=== PATIENT | female | born 1955 | race Hispanic/Latino ===

== ENCOUNTER → 2018-03-12 | Outpatient (CLI) | payer MEDICAID ==
[2018-03-12 18:52] LABS: ALBUMIN 3.5 GM/DL (3.2-5.2); ALBUMIN/GLOBULIN RATIO 1.09 (1.00-1.93); ALKALINE PHOSPHATASE 275 U/L (45-117); ALT/SGPT 23 U/L (12-78); ANION GAP 11 MEQ/L (8-16); AST/SGOT 13 U/L (7-37); BILIRUBIN,TOTAL 0.4 MG/DL (0.2-1.0); BLOOD UREA NITROGEN 25 MG/DL (7-18); CALCIUM LEVEL 9.2 MG/DL (8.8-10.2); CARBON DIOXIDE LEVEL 26 MEQ/L (21-32); CHLORIDE LEVEL 93 MEQ/L (98-107); CREATININE FOR GFR 1.75 MG/DL (0.55-1.30); GLOMERULAR FILTRATION RATE 31.5 (>45); POTASSIUM SERUM 5.1 MEQ/L (3.5-5.1); SODIUM LEVEL 130 MEQ/L (136-145); TOTAL PROTEIN 6.7 GM/DL (6.4-8.2)
[2018-03-12 19:02] LABS: PTH INTACT 86.5 PG/ML (18.5-88.0); TOTAL 25(OH) VITAMIN D 82.3 NG/ML (30.0-100.0)
[2018-03-12 19:10] LABS: GLUCOSE, FASTING 749 MG/DL (70-100)
[2018-03-12 19:30] LABS: CREATININE, URINE 16.7 MG/DL; MALB URINE SIEMENS 20.5 MG/L; MAU/CREAT RATIO 122.7 MCG/MG (0.0-30.0)
[2018-03-12 20:10] LABS: BASO % 0.2 % (0.0-1.0); EOS # 0.1 10^3/uL (0.0-0.50); EOS % 1.2 % (0.0-3.0); HEMATOCRIT 36.4 % (36.0-47.0); HEMOGLOBIN 11.3 g/dl (12.0-15.5); IMMATURE GRANULOCYTE % 0.9 % (0-3.0); LYMPH # 1.3 10^3/uL (1.5-4.5); LYMPH % 21.7 % (24.0-44.0); MEAN CORPUSCULAR HEMOGLOBIN 26.9 pg (27.0-33.0); MEAN CORPUSCULAR VOLUME 86.7 fl (80.0-96.0); MONO # 0.4 10^3/uL (0.0-0.8); MONO % 6.5 % (0.0-5.0); NEUTROPHILS # 4.1 10^3/uL (1.8-7.7); NEUTROPHILS % 69.5 % (36.0-66.0); PLATELET COUNT, AUTOMATED 237 10^3/uL (150-450); RED CELL DISTRIBUTION WIDTH 13.4 % (11.5-14.5); WHITE BLOOD COUNT 5.9 10^3/uL (4.0-10.0)
[2018-03-12 20:53] LABS: APPEARANCE, URINE HAZY (CLEAR); BACTERIA, URINE AUTO 3+ (NEGATIVE); BILIRUBIN, URINE AUTO NEGATIVE (NEGATIVE); BLOOD, URINE BLOOD 1+ (NEGATIVE); COLOR, URINE STRAW (YELLOW); GLUCOSE, URINE (UA) AUTO 3+ mg/dL (NEGATIVE); KETONE, URINE AUTO NEGATIVE (NEGATIVE); LEUKOCYTE ESTERASE, URINE AUTO 3+ (NEGATIVE); MUCUS, URINE SMALL (NEGATIVE); NITRITE, URINE AUTO NEGATIVE (NEGATIVE); PROTEIN, URINE AUTO NEGATIVE (NEGATIVE); RBC, URINE AUTO 14 /HPF (0-3); SQUAMOUS EPITHELIAL CELL UR AU 0 /HPF (0-6); UROBILINOGEN, URINE AUTO 0.2 mg/dL (0.0-2.0); WBC, URINE AUTO TNTC /HPF (0-3)
[2018-03-15 15:51] LABS: FK 506 (TACROLIMUS) LABCORP 5.5 ng/mL (2.0-20.0)
== END ==
LOC: M SMT 11:57
DX: Z94.0 Kidney transplant status (principal); E55.9 Vitamin D deficiency, unspecified; N25.81 Secondary hyperparathyroidism of renal origin; E11.22 Type 2 diabetes mellitus with diabetic chronic kidney disease
CPT/HCPCS: 80053

== ENCOUNTER → 2018-03-16 | Outpatient (REF) | payer OTHER | LOC: M LAB REF 03-17 10:39 | DX: N39.0 Urinary tract infection, site not specified (principal) | CPT/HCPCS: 87186 ==

== ENCOUNTER → 2018-04-16 | Outpatient (CLI) | payer OTHER, MEDICAID | LOC: M PAIN 15:15 | DX: M54.2 Cervicalgia (principal); Z94.0 Kidney transplant status; E11.42 Type 2 diabetes mellitus with diabetic polyneuropathy; I10 Essential (primary) hypertension; Z79.4 Long term (current) use of insulin; Z79.899 Other long term (current) drug therapy | CPT/HCPCS: G0463 ==

== ENCOUNTER → 2018-05-11 | Outpatient (CLI) | payer OTHER, MEDICAID | LOC: M RAD 16:45 | DX: S62.635A Displaced fracture of distal phalanx of left ring finger, initial encounter for closed fracture (principal); M85.842 Other specified disorders of bone density and structure, left hand; X58.XXXA Exposure to other specified factors, initial encounter; Y92.9 Unspecified place or not applicable; M79.645 Pain in left finger(s) | CPT/HCPCS: 73130 ==

== ENCOUNTER → 2018-05-13 | Outpatient (CLI) | payer OTHER, MEDICAID | LOC: M PAIN 15:45 | DX: G89.29 Other chronic pain (principal); M54.2 Cervicalgia; M54.5 Low back pain; E11.9 Type 2 diabetes mellitus without complications; E78.5 Hyperlipidemia, unspecified; I10 Essential (primary) hypertension; Z98.1 Arthrodesis status; Z79.4 Long term (current) use of insulin; Z79.891 Long term (current) use of opiate analgesic; Z79.899 Other long term (current) drug therapy | CPT/HCPCS: G0463 ==

== ENCOUNTER → 2018-05-18 | Outpatient (CLI) | payer OTHER, MEDICAID ==
[2018-05-18 13:35] LABS: BASO % 0.2 % (0.0-1.0); EOS # 0.3 10^3/uL (0.0-0.50); EOS % 4.4 % (0.0-3.0); HEMATOCRIT 38.6 % (36.0-47.0); HEMOGLOBIN 12.5 g/dl (12.0-15.5); IMMATURE GRANULOCYTE % 0.2 % (0-3.0); LYMPH # 1.2 10^3/uL (1.5-4.5); LYMPH % 18.8 % (24.0-44.0); MEAN CORPUSCULAR HEMOGLOBIN 27.2 pg (27.0-33.0); MEAN CORPUSCULAR HGB CONC 32.4 g/dl (32.0-36.5); MEAN CORPUSCULAR VOLUME 83.9 fl (80.0-96.0); MONO # 0.4 10^3/uL (0.0-0.8); MONO % 6.2 % (0.0-5.0); NEUTROPHILS # 4.6 10^3/uL (1.8-7.7); NEUTROPHILS % 70.2 % (36.0-66.0); PLATELET COUNT, AUTOMATED 223 10^3/uL (150-450); RED CELL DISTRIBUTION WIDTH 12.9 % (11.5-14.5); WHITE BLOOD COUNT 6.6 10^3/uL (4.0-10.0)
[2018-05-18 14:30] LABS: ALBUMIN 3.6 GM/DL (3.2-5.2); ALBUMIN/GLOBULIN RATIO 1.06 (1.00-1.93); ALKALINE PHOSPHATASE 232 U/L (45-117); ALT/SGPT 28 U/L (12-78); ANION GAP 8 MEQ/L (8-16); AST/SGOT 20 U/L (7-37); BILIRUBIN,TOTAL 0.6 MG/DL (0.2-1.0); BLOOD UREA NITROGEN 20 MG/DL (7-18); CALCIUM LEVEL 9.3 MG/DL (8.8-10.2); CARBON DIOXIDE LEVEL 28 MEQ/L (21-32); CHLORIDE LEVEL 98 MEQ/L (98-107); CREATININE FOR GFR 1.41 MG/DL (0.55-1.30); GLOMERULAR FILTRATION RATE 40.4 (>45); GLUCOSE, FASTING 410 MG/DL (70-100); PTH INTACT 99.7 PG/ML (18.5-88.0); SODIUM LEVEL 134 MEQ/L (136-145)
[2018-05-19 12:48] LABS: TOTAL 25(OH) VITAMIN D 67.4 NG/ML (30.0-100.0)
[2018-05-21 08:06] LABS: FK 506 (TACROLIMUS) LABCORP 2.6 ng/mL (2.0-20.0)
== END ==
LOC: M SMT 10:44
DX: E11.22 Type 2 diabetes mellitus with diabetic chronic kidney disease (principal); E55.9 Vitamin D deficiency, unspecified; N25.81 Secondary hyperparathyroidism of renal origin; N39.0 Urinary tract infection, site not specified; Z94.0 Kidney transplant status
CPT/HCPCS: 80053

== ENCOUNTER → 2018-05-24 | Outpatient (CLI) | payer OTHER | LOC: M RAD 10:15 | DX: M43.22 Fusion of spine, cervical region (principal) | CPT/HCPCS: 72040 ==

== ENCOUNTER 2018-06-01 09:01 | Emergency (ER) | payer OTHER ==
[2018-06-01] MEDS: MORPHINE 4 MG/ML 1ML VIAL/SYRINGE (J2270) IV (11:16)
[2018-06-01 11:24] LABS: HEMATOCRIT 37.1 % (36.0-47.0); HEMOGLOBIN 12.2 g/dl (12.0-15.5); MEAN CORPUSCULAR HEMOGLOBIN 27.8 pg (27.0-33.0); MEAN CORPUSCULAR HGB CONC 32.9 g/dl (32.0-36.5); MEAN CORPUSCULAR VOLUME 84.5 fl (80.0-96.0); PLATELET COUNT, AUTOMATED 228 10^3/uL (150-450); RED BLOOD COUNT 4.39 10^6/uL (4.00-5.40); RED CELL DISTRIBUTION WIDTH 12.9 % (11.5-14.5); WHITE BLOOD COUNT 12.5 10^3/uL (4.0-10.0)
[2018-06-01 11:39] LABS: INR 0.98; PROTHROMBIN TIME 13.1 SECONDS (12.1-14.4)
[2018-06-01 11:49] LABS: ANION GAP 9 MEQ/L (8-16); BLOOD UREA NITROGEN 26 MG/DL (7-18); CALCIUM LEVEL 8.5 MG/DL (8.8-10.2); CARBON DIOXIDE LEVEL 27 MEQ/L (21-32); CHLORIDE LEVEL 97 MEQ/L (98-107); CREATININE FOR GFR 1.53 MG/DL (0.55-1.30); GLOMERULAR FILTRATION RATE 36.7 (>45); GLUCOSE, FASTING 299 MG/DL (70-100); POTASSIUM SERUM 4.6 MEQ/L (3.5-5.1); SODIUM LEVEL 133 MEQ/L (136-145)
[2018-06-01 11:54] LABS: CPK CREATINE PHOSPHOKINASE 115 U/L (26-192); MB/CK RELATIVE INDEX 1.04 (< OR =4); TROPONIN I < 0.02 NG/ML (< 0.10)
== END 2018-06-01 12:28 | disposition home or self-care (01) ==
LOC: M ED 09:01
DX: J93.9 Pneumothorax, unspecified (principal); S49.92XA Unspecified injury of left shoulder and upper arm, initial encounter; S22.42XA Multiple fractures of ribs, left side, initial encounter for closed fracture; W01.0XXA Fall on same level from slipping, tripping and stumbling without subsequent striking against object, initial encounter; Y92.018 Other place in single-family (private) house as the place of occurrence of the external cause; E11.65 Type 2 diabetes mellitus with hyperglycemia; I10 Essential (primary) hypertension; Z94.0 Kidney transplant status
CPT/HCPCS: J2270

== ENCOUNTER 2018-06-02 20:40 | Inpatient (IN) | payer OTHER ==
[2018-06-02] MEDS: CARVedilol 12.5 MG TAB PO (21:00)
[2018-06-02] MEDS: **NOTE PATIENT COMMENT** MISC XX (21:00)
[2018-06-02] MEDS: LEVEMIR (INSULIN DETEMIR) 1 UNITS/0.01ML SC (21:00)
[2018-06-02] MEDS: NS 1,000 ML IV (22:00)
[2018-06-02 22:35] LABS: BASO % 0.3 % (0.0-1.0); EOS % 0.1 % (0.0-3.0); HEMATOCRIT 37.9 % (36.0-47.0); HEMOGLOBIN 11.9 g/dl (12.0-15.5); IMMATURE GRANULOCYTE % 0.6 % (0-3.0); LYMPH # 1.7 10^3/uL (1.5-4.5); LYMPH % 12.3 % (24.0-44.0); MEAN CORPUSCULAR HEMOGLOBIN 27.4 pg (27.0-33.0); MEAN CORPUSCULAR HGB CONC 31.4 g/dl (32.0-36.5); MEAN CORPUSCULAR VOLUME 87.3 fl (80.0-96.0); MONO % 7.5 % (0.0-5.0); NEUTROPHILS # 10.9 10^3/uL (1.8-7.7); NEUTROPHILS % 79.2 % (36.0-66.0); PLATELET COUNT, AUTOMATED 225 10^3/uL (150-450); RED BLOOD COUNT 4.34 10^6/uL (4.00-5.40); RED CELL DISTRIBUTION WIDTH 13.1 % (11.5-14.5); VENOUS O2 SATURATION 76.7 % (60.0-80.0); VENOUS PARTIAL PRESSURE CO2 57.7 mmHg (38.0-50.0); VENOUS PARTIAL PRESSURE O2 43.5 mmHg (30.0-50.0); VENOUS PH 7.254 UNITS (7.330-7.430); VENOUS STANDARD HCO3 21.5 MEQ/L; VENOUS TOTAL CO2 26.7 MEQ/L (24.0-28.0); WHITE BLOOD COUNT 13.7 10^3/uL (4.0-10.0)
[2018-06-02 22:52] LABS: OSMOLALITY SERUM 299 MOSM/KG (280-301)
[2018-06-02 22:54] LABS: AMMONIA 18 uMOL/L (<32)
[2018-06-02 23:06] LABS: LACTIC ACID SEPSIS PROTOCOL 2.5 MMOL/L (0.4-2.0)
[2018-06-02 23:14] LABS: ALBUMIN 3.4 GM/DL (3.2-5.2); ALBUMIN/GLOBULIN RATIO 0.97 (1.00-1.93); ALKALINE PHOSPHATASE 220 U/L (45-117); ALT/SGPT 47 U/L (12-78); ANION GAP 9 MEQ/L (8-16); AST/SGOT 40 U/L (7-37); BILIRUBIN,DIRECT 0.2 MG/DL (0.0-0.2); BILIRUBIN,TOTAL 0.5 MG/DL (0.2-1.0); BLOOD UREA NITROGEN 37 MG/DL (7-18); CALCIUM LEVEL 8.4 MG/DL (8.8-10.2); CARBON DIOXIDE LEVEL 26 MEQ/L (21-32); CHLORIDE LEVEL 99 MEQ/L (98-107); CK-MB VALUE MASS < 1.0 NG/ML (<3.6); CPK CREATINE PHOSPHOKINASE 188 U/L (26-192); CREATININE FOR GFR 2.24 MG/DL (0.55-1.30); GLOMERULAR FILTRATION RATE 23.7 (>45); GLUCOSE, FASTING 263 MG/DL (70-100); MB/CK RELATIVE INDEX 0.53 (< OR =4); POTASSIUM SERUM 4.4 MEQ/L (3.5-5.1); SODIUM LEVEL 134 MEQ/L (136-145); TOTAL PROTEIN 6.9 GM/DL (6.4-8.2); TROPONIN I < 0.02 NG/ML (< 0.10)
[2018-06-03 00:24] LABS: ABG BASE EXCESS -1.6 (-2.0-2.0); ABG HCO3 25.5 MEQ/L (22.0-26.0); ABG O2 SATURATION 92.2 % (95.0-99.0); ABG PARTIAL PRESSURE CO2 53.2 mmHg (35.0-45.0); ABG PARTIAL PRESSURE O2 64.7 mmHg (75.0-100.0); ABG TOTAL CO2 27.1 MEQ/L (23.0-31.0); ABG pH (ARTERIAL) 7.298 UNITS (7.350-7.450)
[2018-06-03] MEDS: PIPERACILLIN/TAZOBACTAM SOD 3.375 GM in D5W MINI-BAG PLUS 50 ML IV (00:25)
[2018-06-03] MEDS: NS 1,000 ML IV ×3 (01:15→04:47)
[2018-06-03] MEDS ORDERED: GLUCAGON FOR INJ 1 MG VIAL (J1610) SC (01:15)
[2018-06-03] MEDS ORDERED: GLUCOSE 4 GM CHEW TABLET PO (01:15)
[2018-06-03] MEDS ORDERED: DEXTROSE 50% 50 ML SYRINGE IV (01:15)
[2018-06-03] MEDS ORDERED: CEFEPIME HCL 1 GM in D5W MINI-BAG PLUS 50 ML IV ×2 (01:15→02:00)
[2018-06-03] MEDS ORDERED: AZITHROMYCIN INJ 500 MG, VIAL MATE ADAPTER 1 EACH in D5W 250 ML IV (01:15)
[2018-06-03] MEDS ORDERED: ONDANSETRON 4MG/2ML VIAL (J2405) IV ×2 (01:30→02:30)
[2018-06-03] MEDS ORDERED: ACETAMINOPHEN TAB 650MG DOSE (2X325MG) PO (01:30)
[2018-06-03] MEDS ORDERED: MORPHINE 4 MG/ML 1ML VIAL/SYRINGE (J2270) IV (01:30)
[2018-06-03 01:38] LABS: BEDSIDE GLUCOSE 84 MG/DL (80-115)
[2018-06-03] MEDS: CEFEPIME HCL 1 GM in D5W MINI-BAG PLUS 50 ML IV ×2 (02:00→05:13)
[2018-06-03] MEDS ORDERED: WALLBOXKEY XX (02:30)
[2018-06-03] MEDS ORDERED: EPIDURAL/PCA KEYS XX (02:30)
[2018-06-03] MEDS ORDERED: METOCLOPRAMIDE INJ 10MG/2ML VIAL (J2765) IV (02:30)
[2018-06-03] MEDS ORDERED: NALOXONE INJ 0.4 MG/1 ML VIAL (J2310) IV (02:30)
[2018-06-03] MEDS ORDERED: diphenhydrAMINE INJ 50MG/ML VIAL (J1200) IV (02:30)
[2018-06-03] MEDS: BUPIVACAINE/NACL BAG 250 ML EPIDURAL (02:30)
[2018-06-03] MEDS ORDERED: LIDOCAINE 1% MDV 20ML VIAL As Ordered (02:34)
[2018-06-03] MEDS: AZITHROMYCIN INJ 500 MG, VIAL MATE ADAPTER 1 EACH in D5W 250 ML IV (03:06)
[2018-06-03] MEDS: PREGABALIN 75 MG CAP(LYRICA) PO ×4 (03:08→20:50)
[2018-06-03] MEDS: FLUoxetine 20 MG CAP PO ×2 (03:09→20:50)
[2018-06-03] MEDS: TACROLIMUS 1 MG CAP (J7507) PO ×3 (03:10→20:50)
[2018-06-03] MEDS: MYCOPHENOLATE MOFETIL 250 MG CAP (J7517) PO ×3 (03:11→20:51)
[2018-06-03 03:22] LABS: BEDSIDE GLUCOSE 128 MG/DL (80-115)
[2018-06-03 05:30] LABS: HEMATOCRIT 36.5 % (36.0-47.0); HEMOGLOBIN 11.3 g/dl (12.0-15.5); MEAN CORPUSCULAR HEMOGLOBIN 27.4 pg (27.0-33.0); MEAN CORPUSCULAR VOLUME 88.4 fl (80.0-96.0); PLATELET COUNT, AUTOMATED 197 10^3/uL (150-450); RED BLOOD COUNT 4.13 10^6/uL (4.00-5.40); WHITE BLOOD COUNT 13.4 10^3/uL (4.0-10.0)
[2018-06-03 05:58] LABS: ALBUMIN 3.4 GM/DL (3.2-5.2); ALBUMIN/GLOBULIN RATIO 0.92 (1.00-1.93); ALKALINE PHOSPHATASE 186 U/L (45-117); ALT/SGPT 40 U/L (12-78); ANION GAP 7 MEQ/L (8-16); AST/SGOT 39 U/L (7-37); BILIRUBIN,TOTAL 0.6 MG/DL (0.2-1.0); BLOOD UREA NITROGEN 39 MG/DL (7-18); CALCIUM LEVEL 8.9 MG/DL (8.8-10.2); CARBON DIOXIDE LEVEL 26 MEQ/L (21-32); CHLORIDE LEVEL 99 MEQ/L (98-107); CK-MB VALUE MASS < 1.0 NG/ML (<3.6); CPK CREATINE PHOSPHOKINASE 167 U/L (26-192); CREATININE FOR GFR 1.85 MG/DL (0.55-1.30); GLOMERULAR FILTRATION RATE 29.5 (>45); GLUCOSE, FASTING 166 MG/DL (70-100); POTASSIUM SERUM 4.5 MEQ/L (3.5-5.1); SODIUM LEVEL 132 MEQ/L (136-145); TOTAL PROTEIN 7.1 GM/DL (6.4-8.2); TROPONIN I < 0.02 NG/ML (< 0.10)
[2018-06-03] MEDS: HumaLOG INSULIN (NovoLOG) PER UNIT SC ×4 (07:30→20:51)
[2018-06-03] MEDS: HEPARIN SOD (PORCINE) 5000 UNITS/ML VIAL SQ ×2 (10:02→20:52)
[2018-06-03] MEDS: LIDOCAINE 5% (LIDODERM) PATCH TD (10:02)
[2018-06-03] MEDS: SENOKOT S TAB PO ×2 (10:07→20:50)
[2018-06-03] MEDS: ATORVASTATIN 20 MG TAB PO (10:07)
[2018-06-03] MEDS: CARVedilol 12.5 MG TAB PO ×2 (10:08→20:51)
[2018-06-03] MEDS: PERCOCET 5MG/325MG TAB PO ×2 (10:16→16:47)
[2018-06-03 12:30] LABS: BEDSIDE GLUCOSE 165 MG/DL (80-115)
[2018-06-03 13:01] LABS: CK-MB VALUE MASS < 1.0 NG/ML (<3.6); CPK CREATINE PHOSPHOKINASE 138 U/L (26-192); MB/CK RELATIVE INDEX 0.72 (< OR =4); TROPONIN I < 0.02 NG/ML (< 0.10)
[2018-06-03 16:43] LABS: BEDSIDE GLUCOSE 225 MG/DL (80-115)
[2018-06-03] MEDS: LEVEMIR (INSULIN DETEMIR) 1 UNITS/0.01ML SC (20:51)
[2018-06-03] MEDS: **NOTE PATIENT COMMENT** MISC XX (20:52)
[2018-06-03 20:58] LABS: BEDSIDE GLUCOSE 195 MG/DL (80-115)
[2018-06-04] MEDS: AZITHROMYCIN INJ 500 MG, VIAL MATE ADAPTER 1 EACH in D5W 250 ML IV (00:44)
[2018-06-04] MEDS: BUPIVACAINE/NACL BAG 250 ML EPIDURAL (02:39)
[2018-06-04] MEDS: CEFEPIME HCL 1 GM in D5W MINI-BAG PLUS 50 ML IV (04:24)
[2018-06-04 05:10] LABS: AMORPHOUS SEDIMENT SMALL (NEGATIVE); APPEARANCE, URINE CLOUDY (CLEAR); BACTERIA, URINE AUTO 1+ (NEGATIVE); BILIRUBIN, URINE AUTO NEGATIVE (NEGATIVE); BLOOD, URINE BLOOD 2+ (NEGATIVE); COLOR, URINE YELLOW (YELLOW); GLUCOSE, URINE (UA) AUTO 2+ mg/dL (NEGATIVE); KETONE, URINE AUTO NEGATIVE (NEGATIVE); LEUKOCYTE ESTERASE, URINE AUTO 3+ (NEGATIVE); MUCUS, URINE SMALL (NEGATIVE); NITRITE, URINE AUTO NEGATIVE (NEGATIVE); PROTEIN, URINE AUTO 2+ mg/dL (NEGATIVE); RBC, URINE AUTO 42 /HPF (0-3); SPECIFIC GRAVITY URINE AUTO 1.018 (1.002-1.035); SQUAMOUS EPITHELIAL CELL UR AU 0 /HPF (0-6); URIC ACID CRYSTALS SMALL; UROBILINOGEN, URINE AUTO 0.2 mg/dL (0.0-2.0); WBC, URINE AUTO TNTC /HPF (0-3)
[2018-06-04 05:12] LABS: OSMOLALITY URINE 458 MOSM/KG (500-800)
[2018-06-04 05:27] LABS: HEMATOCRIT 28.8 % (36.0-47.0); MEAN CORPUSCULAR HEMOGLOBIN 26.9 pg (27.0-33.0); MEAN CORPUSCULAR HGB CONC 31.3 g/dl (32.0-36.5); MEAN CORPUSCULAR VOLUME 86.2 fl (80.0-96.0); PLATELET COUNT, AUTOMATED 164 10^3/uL (150-450); RED BLOOD COUNT 3.34 10^6/uL (4.00-5.40); RED CELL DISTRIBUTION WIDTH 12.8 % (11.5-14.5); WHITE BLOOD COUNT 9.9 10^3/uL (4.0-10.0)
[2018-06-04 05:28] LABS: CHLORIDE,RANDOM URINE < 10 MEQ/L; POTASSIUM RANDOM URINE 35.1 MEQ/L; SODIUM,RANDOM URINE 11 MEQ/L; TOTAL PROTEIN,RANDOM URINE 109.3 MG/DL (0.0-12.0)
[2018-06-04 05:59] LABS: ALBUMIN 2.6 GM/DL (3.2-5.2); ALBUMIN/GLOBULIN RATIO 0.81 (1.00-1.93); ALKALINE PHOSPHATASE 190 U/L (45-117); ALT/SGPT 33 U/L (12-78); ANION GAP 5 MEQ/L (8-16); AST/SGOT 29 U/L (7-37); BILIRUBIN,TOTAL 0.5 MG/DL (0.2-1.0); BLOOD UREA NITROGEN 38 MG/DL (7-18); CALCIUM LEVEL 8.2 MG/DL (8.8-10.2); CARBON DIOXIDE LEVEL 26 MEQ/L (21-32); CHLORIDE LEVEL 100 MEQ/L (98-107); CREATININE FOR GFR 1.64 MG/DL (0.55-1.30); GLOMERULAR FILTRATION RATE 33.9 (>45); GLUCOSE, FASTING 276 MG/DL (70-100); POTASSIUM SERUM 4.3 MEQ/L (3.5-5.1); SODIUM LEVEL 131 MEQ/L (136-145); TOTAL PROTEIN 5.8 GM/DL (6.4-8.2)
[2018-06-04] MEDS: HumaLOG INSULIN (NovoLOG) PER UNIT SC ×4 (10:17→21:00)
[2018-06-04] MEDS: HEPARIN SOD (PORCINE) 5000 UNITS/ML VIAL SQ ×2 (10:17→21:14)
[2018-06-04] MEDS: LIDOCAINE 5% (LIDODERM) PATCH TD (10:18)
[2018-06-04] MEDS: ATORVASTATIN 20 MG TAB PO (10:18)
[2018-06-04] MEDS: SENOKOT S TAB PO ×2 (10:18→21:17)
[2018-06-04] MEDS: TACROLIMUS 1 MG CAP (J7507) PO ×2 (10:19→21:16)
[2018-06-04] MEDS: MYCOPHENOLATE MOFETIL 250 MG CAP (J7517) PO ×2 (10:19→21:15)
[2018-06-04] MEDS: CARVedilol 12.5 MG TAB PO (10:20)
[2018-06-04] MEDS: PREGABALIN 75 MG CAP(LYRICA) PO ×3 (10:21→21:15)
[2018-06-04] MEDS: PERCOCET 5MG/325MG TAB PO ×2 (10:45→21:16)
[2018-06-04 11:56] LABS: BEDSIDE GLUCOSE 117 MG/DL (80-115)
[2018-06-04] MEDS: NS 1,000 ML IV (12:28)
[2018-06-04 12:37] LABS: BEDSIDE GLUCOSE 122 MG/DL (80-115)
[2018-06-04 12:41] LABS: HEMOGLOBIN 9.9 g/dl (12.0-15.5)
[2018-06-04 16:19] LABS: BEDSIDE GLUCOSE 145 MG/DL (80-115)
[2018-06-04] MEDS: **NOTE PATIENT COMMENT** MISC XX (21:00)
[2018-06-04 21:08] LABS: BEDSIDE GLUCOSE 171 MG/DL (80-115)
[2018-06-04] MEDS: FLUoxetine 20 MG CAP PO (21:15)
[2018-06-04] MEDS: CARVedilol 6.25 MG TAB PO (21:16)
[2018-06-04] MEDS: LEVEMIR (INSULIN DETEMIR) 1 UNITS/0.01ML SC (21:17)
[2018-06-05] MEDS: AZITHROMYCIN INJ 500 MG, VIAL MATE ADAPTER 1 EACH in D5W 250 ML IV (01:26)
[2018-06-05] MEDS: BUPIVACAINE/NACL BAG 250 ML EPIDURAL (02:04)
[2018-06-05] MEDS: PERCOCET 5MG/325MG TAB PO ×3 (03:56→20:52)
[2018-06-05] MEDS: CEFEPIME HCL 1 GM in D5W MINI-BAG PLUS 50 ML IV (04:39)
[2018-06-05 06:25] LABS: HEMATOCRIT 28.6 % (36.0-47.0); MEAN CORPUSCULAR HEMOGLOBIN 27.5 pg (27.0-33.0); MEAN CORPUSCULAR HGB CONC 31.5 g/dl (32.0-36.5); MEAN CORPUSCULAR VOLUME 87.5 fl (80.0-96.0); PLATELET COUNT, AUTOMATED 187 10^3/uL (150-450); RED BLOOD COUNT 3.27 10^6/uL (4.00-5.40); RED CELL DISTRIBUTION WIDTH 12.9 % (11.5-14.5); WHITE BLOOD COUNT 9.9 10^3/uL (4.0-10.0)
[2018-06-05 06:45] LABS: ALBUMIN 2.4 GM/DL (3.2-5.2); ALBUMIN/GLOBULIN RATIO 0.77 (1.00-1.93); ALKALINE PHOSPHATASE 250 U/L (45-117); ALT/SGPT 29 U/L (12-78); ANION GAP 7 MEQ/L (8-16); AST/SGOT 29 U/L (7-37); BILIRUBIN,TOTAL 0.4 MG/DL (0.2-1.0); BLOOD UREA NITROGEN 34 MG/DL (7-18); CALCIUM LEVEL 8.1 MG/DL (8.8-10.2); CARBON DIOXIDE LEVEL 24 MEQ/L (21-32); CHLORIDE LEVEL 105 MEQ/L (98-107); GLOMERULAR FILTRATION RATE 37.6 (>45); GLUCOSE, FASTING 86 MG/DL (70-100); POTASSIUM SERUM 4.2 MEQ/L (3.5-5.1); SODIUM LEVEL 136 MEQ/L (136-145); TOTAL PROTEIN 5.5 GM/DL (6.4-8.2)
[2018-06-05] MEDS: HumaLOG INSULIN (NovoLOG) PER UNIT SC ×4 (07:30→20:53)
[2018-06-05] MEDS: PREGABALIN 75 MG CAP(LYRICA) PO ×3 (08:02→20:43)
[2018-06-05] MEDS: ATORVASTATIN 20 MG TAB PO (08:02)
[2018-06-05] MEDS: SENOKOT S TAB PO ×2 (08:02→20:43)
[2018-06-05] MEDS: TACROLIMUS 1 MG CAP (J7507) PO ×2 (08:02→20:44)
[2018-06-05] MEDS: MYCOPHENOLATE MOFETIL 250 MG CAP (J7517) PO ×2 (08:02→20:44)
[2018-06-05] MEDS: HEPARIN SOD (PORCINE) 5000 UNITS/ML VIAL SQ ×2 (08:03→20:47)
[2018-06-05] MEDS: LIDOCAINE 5% (LIDODERM) PATCH TD (08:03)
[2018-06-05] MEDS: CARVedilol 6.25 MG TAB PO ×2 (08:04→20:44)
[2018-06-05 12:21] LABS: BEDSIDE GLUCOSE 108 MG/DL (80-115)
[2018-06-05 12:23] LABS: BEDSIDE GLUCOSE 446 MG/DL (80-115)
[2018-06-05] MEDS: LevoFLOXacin 750 MG TABLET PO (16:48)
[2018-06-05 17:07] LABS: BEDSIDE GLUCOSE 83 MG/DL (80-115)
[2018-06-05 20:23] LABS: BEDSIDE GLUCOSE 103 MG/DL (80-115)
[2018-06-05] MEDS: FLUoxetine 20 MG CAP PO (20:51)
[2018-06-05] MEDS: LEVEMIR (INSULIN DETEMIR) 1 UNITS/0.01ML SC (20:55)
[2018-06-05] MEDS: **NOTE PATIENT COMMENT** MISC XX (21:00)
[2018-06-06] MEDS: PERCOCET 5MG/325MG TAB PO ×5 (02:03→22:02)
[2018-06-06 05:48] LABS: HEMATOCRIT 32.2 % (36.0-47.0); HEMOGLOBIN 10.2 g/dl (12.0-15.5); MEAN CORPUSCULAR HEMOGLOBIN 27.4 pg (27.0-33.0); MEAN CORPUSCULAR HGB CONC 31.7 g/dl (32.0-36.5); MEAN CORPUSCULAR VOLUME 86.6 fl (80.0-96.0); PLATELET COUNT, AUTOMATED 207 10^3/uL (150-450); RED BLOOD COUNT 3.72 10^6/uL (4.00-5.40); RED CELL DISTRIBUTION WIDTH 12.9 % (11.5-14.5)
[2018-06-06 06:14] LABS: ALBUMIN 2.4 GM/DL (3.2-5.2); ALBUMIN/GLOBULIN RATIO 0.69 (1.00-1.93); ALKALINE PHOSPHATASE 322 U/L (45-117); ALT/SGPT 26 U/L (12-78); ANION GAP 9 MEQ/L (8-16); AST/SGOT 30 U/L (7-37); BILIRUBIN,TOTAL 0.5 MG/DL (0.2-1.0); BLOOD UREA NITROGEN 27 MG/DL (7-18); CALCIUM LEVEL 8.3 MG/DL (8.8-10.2); CARBON DIOXIDE LEVEL 22 MEQ/L (21-32); CHLORIDE LEVEL 105 MEQ/L (98-107); CREATININE FOR GFR 1.23 MG/DL (0.55-1.30); GLOMERULAR FILTRATION RATE 47.3 (>45); GLUCOSE, FASTING 92 MG/DL (70-100); MAGNESIUM LEVEL 2.1 MG/DL (1.8-2.4); POTASSIUM SERUM 4.6 MEQ/L (3.5-5.1); SODIUM LEVEL 136 MEQ/L (136-145); TOTAL PROTEIN 5.9 GM/DL (6.4-8.2)
[2018-06-06] MEDS: HumaLOG INSULIN (NovoLOG) PER UNIT SC ×4 (07:30→19:56)
[2018-06-06] MEDS: ATORVASTATIN 20 MG TAB PO (09:02)
[2018-06-06] MEDS: TACROLIMUS 1 MG CAP (J7507) PO ×2 (09:02→19:52)
[2018-06-06] MEDS: HEPARIN SOD (PORCINE) 5000 UNITS/ML VIAL SQ ×2 (09:02→19:52)
[2018-06-06] MEDS: MYCOPHENOLATE MOFETIL 250 MG CAP (J7517) PO ×2 (09:02→19:52)
[2018-06-06] MEDS: SENOKOT S TAB PO ×2 (09:04→20:12)
[2018-06-06] MEDS: PREGABALIN 75 MG CAP(LYRICA) PO ×3 (09:04→19:52)
[2018-06-06] MEDS: LIDOCAINE 5% (LIDODERM) PATCH TD (09:04)
[2018-06-06] MEDS: CARVedilol 6.25 MG TAB PO ×2 (09:04→19:53)
[2018-06-06] MEDS: BUPIVACAINE/NACL BAG 250 ML EPIDURAL (09:48)
[2018-06-06 11:41] LABS: BEDSIDE GLUCOSE 224 MG/DL (80-115)
[2018-06-06 17:11] LABS: BEDSIDE GLUCOSE 238 MG/DL (80-115)
[2018-06-06] MEDS: FLUoxetine 20 MG CAP PO (19:52)
[2018-06-06 19:59] LABS: BEDSIDE GLUCOSE 226 MG/DL (80-115)
[2018-06-06] MEDS: LEVEMIR (INSULIN DETEMIR) 1 UNITS/0.01ML SC (20:13)
[2018-06-06] MEDS: **NOTE PATIENT COMMENT** MISC XX (20:13)
[2018-06-07 05:49] LABS: HEMATOCRIT 33.1 % (36.0-47.0); HEMOGLOBIN 10.6 g/dl (12.0-15.5); MEAN CORPUSCULAR HEMOGLOBIN 27.2 pg (27.0-33.0); MEAN CORPUSCULAR VOLUME 85.1 fl (80.0-96.0); PLATELET COUNT, AUTOMATED 244 10^3/uL (150-450); RED BLOOD COUNT 3.89 10^6/uL (4.00-5.40); RED CELL DISTRIBUTION WIDTH 12.9 % (11.5-14.5); WHITE BLOOD COUNT 8.1 10^3/uL (4.0-10.0)
[2018-06-07] MEDS: PERCOCET 5MG/325MG TAB PO (05:55)
[2018-06-07 06:11] LABS: ALBUMIN 2.4 GM/DL (3.2-5.2); ALBUMIN/GLOBULIN RATIO 0.67 (1.00-1.93); ALKALINE PHOSPHATASE 291 U/L (45-117); ALT/SGPT 24 U/L (12-78); ANION GAP 8 MEQ/L (8-16); AST/SGOT 19 U/L (7-37); BILIRUBIN,TOTAL 0.3 MG/DL (0.2-1.0); BLOOD UREA NITROGEN 26 MG/DL (7-18); CALCIUM LEVEL 8.5 MG/DL (8.8-10.2); CARBON DIOXIDE LEVEL 24 MEQ/L (21-32); CHLORIDE LEVEL 105 MEQ/L (98-107); CREATININE FOR GFR 1.32 MG/DL (0.55-1.30); GLOMERULAR FILTRATION RATE 43.6 (>45); GLUCOSE, FASTING 106 MG/DL (70-100); MAGNESIUM LEVEL 2.1 MG/DL (1.8-2.4); POTASSIUM SERUM 4.3 MEQ/L (3.5-5.1); SODIUM LEVEL 137 MEQ/L (136-145)
[2018-06-07] MEDS: MYCOPHENOLATE MOFETIL 250 MG CAP (J7517) PO (08:42)
[2018-06-07] MEDS: CARVedilol 6.25 MG TAB PO (08:42)
[2018-06-07] MEDS: HEPARIN SOD (PORCINE) 5000 UNITS/ML VIAL SQ (08:42)
[2018-06-07] MEDS: SENOKOT S TAB PO (08:42)
[2018-06-07] MEDS: ATORVASTATIN 20 MG TAB PO (08:42)
[2018-06-07] MEDS: TACROLIMUS 1 MG CAP (J7507) PO (08:42)
[2018-06-07] MEDS: PREGABALIN 75 MG CAP(LYRICA) PO (08:42)
[2018-06-07] MEDS: LIDOCAINE 5% (LIDODERM) PATCH TD (08:43)
[2018-06-07] MEDS: HumaLOG INSULIN (NovoLOG) PER UNIT SC (08:43)
[2018-06-07 11:49] LABS: BEDSIDE GLUCOSE 113 MG/DL (80-115)
== END 2018-06-07 13:05 | disposition home or self-care (01) | DRG 460 ==
LOC: M ED INP 06-03 01:16 → M ICU 06-03 03:32 → M MS5PR 06-04 16:56 → M ED 20:40
PROVIDERS: Hospitalist
DX: N17.9 Acute kidney failure, unspecified (principal); J96.02 Acute respiratory failure with hypercapnia; G93.41 Metabolic encephalopathy; S27.0XXA Traumatic pneumothorax, initial encounter; J18.9 Pneumonia, unspecified organism; E11.22 Type 2 diabetes mellitus with diabetic chronic kidney disease; E11.40 Type 2 diabetes mellitus with diabetic neuropathy, unspecified; E11.21 Type 2 diabetes mellitus with diabetic nephropathy; S22.42XA Multiple fractures of ribs, left side, initial encounter for closed fracture; Z94.0 Kidney transplant status; N18.3 Chronic kidney disease, stage 3 (moderate); E87.1 Hypo-osmolality and hyponatremia; I15.0 Renovascular hypertension; R53.83 Other fatigue; E78.5 Hyperlipidemia, unspecified; F41.9 Anxiety disorder, unspecified; M54.2 Cervicalgia; Z79.891 Long term (current) use of opiate analgesic; Z79.4 Long term (current) use of insulin; Z79.899 Other long term (current) drug therapy; Z98.1 Arthrodesis status; W19.XXXA Unspecified fall, initial encounter; Y92.009 Unspecified place in unspecified non-institutional (private) residence as the place of occurrence of the external cause

== ENCOUNTER 2018-06-16 21:06 | Emergency (ER) | payer OTHER ==
[2018-06-16 21:15] LABS: BEDSIDE GLUCOSE 58 MG/DL (80-115)
[2018-06-16 22:04] LABS: BEDSIDE GLUCOSE 71 MG/DL (80-115)
[2018-06-16 22:42] LABS: BEDSIDE GLUCOSE 70 MG/DL (80-115)
[2018-06-16 22:43] LABS: BEDSIDE GLUCOSE 82 MG/DL (80-115)
[2018-06-16 23:28] LABS: BEDSIDE GLUCOSE 110 MG/DL (80-115)
== END 2018-06-16 23:30 | disposition home or self-care (01) ==
LOC: M ED 23:30
DX: E11.649 Type 2 diabetes mellitus with hypoglycemia without coma (principal); I10 Essential (primary) hypertension; E78.5 Hyperlipidemia, unspecified; Z94.0 Kidney transplant status
CPT/HCPCS: 99284

== ENCOUNTER → 2018-06-26 | Outpatient (CLI) | payer OTHER, MEDICAID ==
[~2018-06-26] MED LIST: ATOR1TAB21; ATOR1TAB21 PO; CARV12.5; CARV12.5 PO; CELL250C PO; FLUO20CA19; FLUO20CA19 PO; FURO20TA2; FURO20TA2 PO; HYDROCODONE-ACETAMIN; INSUH10VL SC; INSULADS INJ; LANTINJ4 SC; LEVA750T7 PO; LIDO1PAD; LIDO5TD TD; LYRI75CA; LYRI75CA PO; METO5TAB2; METO5TAB2 PO; MYCO250C; NORC10TA21 PO; PATIENT COMMENT; PERCOCET PO; TACR1CAP3; TACR1CAP3 PO; VITA50005; VITA50005 PO
--- NOTE | 2018-07-13 00:17 | ECWPNPC ---
PATIENT NAME: JOANNE GARNER : 1955 GENDER: FEMALE VISIT DATE: 06/26/2018 DISCHARGE DATE: 06/26/18 1315 VISIT LOCKED DATE TIME: PHYSICIAN: DAGOBERTO AGUILAR MD RESOURCE: DAGOBERTO AGUILAR MD REASON FOR APPOINTMENT 1. MED MANAGE HISTORY OF PRESENT ILLNESS HISTORY OF PRESENT ILLNESS: PAIN THE PATIENT DESCRIBES THE PAIN... 63 YEAR OLD FEMALE PATIENT WITH A HISTORY OF MULTIPLE BODY PAIN. THE PATIENT DESCRIBES THE PAIN BURNING AND HAVING IT ALL THE TIME WITH A PAIN SCORE OF 7-10/10 DEPENDING ON MOVEMENT. THE PATIENT SAYS THAT HER MAIN PAIN WAS IN HER LOW BACK UNTIL A COUPLE WEEKS AGO WHEN SHE FELL AND INJURED SOME OF HER RIBS. THE PATIENT STATES THAT THE PAIN IN HER RIBS IS VERY SEVERE AND SHE HAS DIFFICULTY DOING ANY SORT OF ACTIVITY. THE PATIENT IS CURRENTLY USING LYRICA, HYDROCODONE, AND LIDODERM PATCHES TO AID IN PAIN RELIEF. PATIENT DENIES UNEXPLAINABLE WEIGHT LOSS, FEVER, CHILLS, NEW CHANGES ON HER URINARY OR BOWEL CONTROL. FALL RISK SCREENING: SCREENING :NO FALLS IN THE PAST YEAR CURRENT MEDICATIONS TAKING LYRICA 75 MG CAPSULE 1 CAPSULE ORALLY FOR PAIN THREE TIMES A DAY TAKING LIDODERM 5 % PATCH 2 PATCH TO SKIN REMOVE AFTER 12 HOURS EXTERNALLY FOR PAIN ONCE A DAY MDD2 TAKING HYDROCODONE-ACETAMINOPHEN 10-325 MG TABLET 1 TABLET NEEDED ORALLY FOR PAIN MDD 2, NOTES: FILL ON 04/22/18 TAKING ERGOCAL 2500 UNIT CAPSULE 1 CAPSULE ORALLY ONCE A DAY TAKING TACROLIMUS 0.5 MG CAPSULE EXTENDED RELEASE 24 HOUR ORALLY TAKING NOVOLOG 100 UNIT/ML SOLUTION SUBCUTANEOUS TAKING NEVANAC 0.1 % SUSPENSION 1 DROP INTO AFFECTED EYE OPHTHALMIC THREE TIMES A DAY TAKING LANTUS 100 UNIT/ML SOLUTION SUBCUTANEOUS TAKING MYCOPHENOLATE MOFETIL 250 MG CAPSULE ORALLY TAKING FUROSEMIDE 20 MG TABLET 1 TABLET ORALLY MWF ONCE A DAY TAKING ATORVASTATIN CALCIUM 20 MG TABLET 1 TABLET ORALLY ONCE A DAY TAKING FLUOXETINE HCL 20 MG CAPSULE 1 CAPSULE ORALLY ONCE A DAY TAKING CARVEDILOL 12.5 MG TABLET ORALLY TAKING REGLAN 5 MG TABLET 1 TAB ORALLY BID NOT-TAKING PREDNISOLONE 5 MG TABLET 10 TABLET WITH FOOD OR MILK IN THE MORNING ORALLY ONCE A DAY NOT-TAKING PREDNISOLONE 5 MG TABLET 1 TABLET WITH FOOD OR MILK IN THE MORNING ORALLY ONCE A DAY MEDICATION LIST REVIEWED AND RECONCILED WITH THE PATIENT PAST MEDICAL HISTORY DIABETIC KIDNEY FAILURE HYPERLIPIDEMIA CHRONIC PAIN SYNDROME HTN ALLERGIES N.K.D.A. 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 EXERCISE: NOT WORKING, NO CONCENTRATED SWEETS., NO CONCENTRATED SWEETS.. MARITAL STATUS: NOT WORKING, NO CONCENTRATED SWEETS., NO CONCENTRATED SWEETS., NO REGULAR EXERCISE. OTHERS AT HOME: NOT WORKING, NO CONCENTRATED SWEETS., NO CONCENTRATED SWEETS., NO REGULAR EXERCISE, . IMMUNIZATION PROGRAM NOT WORKING, NO CONCENTRATED SWEETS., NO CONCENTRATED SWEETS., NO REGULAR EXERCISE, , SPOUSE, CHILDREN. PAIN CLINIC PFS, CLERGY, PUBLIC HEALTH REFERRALS PFS REFERRAL NEEDED?NO CLERGY REFERRAL NEEDED?NO PUBLIC HEALTH REFERRAL NEEDED?NO WAS THE PROVIDER NOTIFIED OF ANY PERTINENT INFO?NO HAS THE PATIENT BEEN EDUCATED REGARDING HIS/HER PLAN OF CARE?YES HAS THE PATIENT BEEN EDUCATED REGARDING PAIN, THE RISK FOR PAIN, THE IMPORTANCE OF EFFECTIVE PAIN MANAGEMENT, AND THE PAIN ASSESSMENT PROCESS?YES PLEASE DOCUMENT ANY ADDTIONAL DETAILS.PLEASE FREE TEXT IN THE NOTES SECTION. HOUSING: PFS REFERRAL NEEDED? NO, CLERGY REFERRAL NEEDED? NO, PUBLIC HEALTH REFERRAL NEEDED? NO, WAS THE PROVIDER NOTIFIED OF ANY PERTINENT INFO? NO, HAS THE PATIENT BEEN EDUCATED REGARDING HIS/HER PLAN OF CARE? YES, HAS THE PATIENT BEEN EDUCATED REGARDING PAIN, THE RISK FOR PAIN, THE IMPORTANCE OF EFFECTIVE PAIN MANAGEMENT, AND THE PAIN ASSESSMENT PROCESS? YES, PLEASE DOCUMENT ANY ADDTIONAL DETAILS. PLEASE FREE TEXT IN THE NOTES SECTION.. ADVANCE DIRECTIVE ADVANCE DIRECTIVE DISCUSSED WITH PATIENT:YES GAVE PT PRINTED INFO TO TAKE HOME PT HAS NO ADVANCED DIRECTIVES HOSPITALIZATION/MAJOR DIAGNOSTIC PROCEDURE EVERAL FOR KIDNEY FAILURE PRIOR TO TRANSPLANT REVIEW OF SYSTEMS REVIEWED BY: PROVIDER: DAGOBERTO AGUILAR MD . CONSTITUTIONAL: ANY CHANGE IN YOUR MEDICAL CONDITION? NO . CHILLS NO . FEVER NO . INFECTION: DO YOU HAVE NEW INFECTIONS? NO . DO YOU HAVE HISTORY OF MRSA? NO . MUSCULOSKELETAL: ANY NEW PATTERNS OF PAIN OR NUMBNESS? NO . GASTROENTEROLOGY: ANY NEW CHANGE IN BOWEL CONTROL? NO . GENITOURINARY: ANY NEW CHANGE IN BLADDER CONTROL? NO . IS THERE A CHANCE YOU COULD BE ? NO . HEMATOLOGY/LYMPH: DO YOU TAKE ANY BLOOD THINNERS? (FOR EXAMPLE- COUMADIN, PLAVIX, AGGRENOX, PLATEL, PRADAXA, OR XARELTO) NO . WHEN WAS YOUR LAST DOSE? DATE: TIME: . NEUROLOGY: HAVE YOU FALLEN IN THE PAST 6 MONTHS? YES, PT FELL AFTER THANKSGIVING TRIPPED ON SOMETHING WITH SLIPPERY SOCKS, PT REPORTS INJURIES AND WAS SEEN AT [facility] [place] [facility] 1 W[facility]. 3 FX RIBS AND COLLAPSED LUNG LEFT . ANY NEW EXTREMITY NUMBNESS OR WEAKNESS? YES, BILAT LEG WEAKNESS AND NUMBNESS . CARDIOLOGY: DO YOU HAVE A PACEMAKER OR DEFIBRILLATOR? NO . RESPIRATORY: HAVE YOU BEEN SICK IN THE PAST WEEK? NO . FEVER NO . FLU LIKE SYMPTOMS? NO . COUGH NO . INTEGUMENTARY: DO YOU HAVE ANY RASHES OR OPEN SORES? NO . ALLERGIC/IMMUNO: ARE YOU ALLERGIC TO SHELLFISH OR IV DYE? NO . ANY NEW ALLERGIES? NO . PSYCHIATRIC: DO YOU HAVE THOUGHTS OF HURTING YOURSELF OR SOMEONE ELSE? NO . ARE YOU ABUSED, NEGLECTED, OR IN AN UNSAFE ENVIRONMENT? NO . ENDOCRINOLOGY: ARE YOU DIABETIC? YES . OTHER: DO YOU NEED ANY PRESCRIPTIONS? YES, TO DISCUSS WITH DR AGUILAR . IF YES, PLEASE LIST: ____ . ANY NEW PROBLEMS WITH YOUR MEDICATIONS? NO . WHEN DID YOU LAST EAT? ____ . WHEN DID YOU LAST DRINK? ____ . WHAT DID YOU LAST DRINK? ____ . NAME OF PERSON DRIVING YOU HOME? ____ . DO YOU HAVE ANY OTHER QUESTIONS OR CONCERNS NO . VITAL SIGNS WT 185 LBS, HT 61 IN, BMI 34.95 INDEX, BP 187/78 MM HG, HR 83 /MIN, RR 16 /MIN, TEMP 97.7 F, OXYGEN SAT % 94, REVIEWED BY: EM. EXAMINATION GENERAL EXAMINATION: PATIENT IS ALERT O X 3 AND COOPERATIVE. SEVERE TENDERNESS OVER THE LEFT RIB AREA. TENDERNESS IN THE LOW BACK AREA. ASSESSMENTS COSTOCHONDRAL PAIN - R07.1 (PRIMARY) LOW BACK PAIN - M54.5 OTHER CHRONIC PAIN - G89.29 HISTORY OF RIB FRACTURE - Z87.81 TREATMENT COSTOCHONDRAL PAIN CLINICAL NOTES: WE DISCUSSED SEVERAL ISSUES WITH MRS. GARNER'S PAIN MANAGEMENT CASE. THE PATIENT WILL CONTINUE WITH THE SAME MEDICATIONS AND I WILL INCREASE THE PATCHES FROM 2 PER DAY TO 3 PER DAY. THE PATIENT BROUGHT HER MEDICATIONS WITH HER TO TODAY'S VISIT IN THEIR ORIGINAL BOTTLES AND ISTOP _[id number] WAS REVIEWED. WE WILL REPEAT A URINE TOXICOLOGY TODAY. I WOULD TO DISCUSS THE CASE FURTHER WITH DR. CHO AND THE PAIN CLINIC IN [place]. DUE TO THE COSTOCHONDRAL PAIN, I WOULD LIKE TO REQUEST AN INTERCOSTAL NERVE BLOCK WITH IV SEDATION. WE DISCUSSED THE BENEFITS, RISKS, AND ALTERNATIVES OF THE INJECTION AND THE PATIENT WOULD LIKE TO PROCEED. THE PATIENT WILL NEED A PRE SEDATION FOLLOW UP BEFORE THE INJECTION. THE PATIENT WILL FOLLOW UP IN 2 MONTHS. INSTRUCTIONS WERE GIVEN, QUESTIONS WERE ANSWERED, PATIENT REPORTS UNDERSTANDING AND AGREES WITH THE PLAN. I, SHANIKA POTTER, DOCUMENTED THE ABOVE INFORMATION ACTING A SCRIBE FOR DR. AGUILAR. I HAVE REVIEWED THE ABOVE DOCUMENT, WRITTEN BY SHANIKA WILSONIBGarrett AND I VERIFY THAT IT IS ACCURATE. OTHERS REFILL LYRICA CAPSULE, 75 MG, 1 CAPSULE, ORALLY FOR PAIN, THREE TIMES A DAY, 30 DAY(S), 90 CAPSULE, REFILLS 0 REFILL LIDODERM PATCH, 5 %, 3 PATCH TO SKIN REMOVE AFTER 12 HOURS, EXTERNALLY FOR PAIN, ONCE A DAY MDD3, 30 DAYS, 90, REFILLS 1 REFILL HYDROCODONE-ACETAMINOPHEN TABLET, 10-325 MG, 1 TABLET NEEDED, ORALLY FOR PAIN, MDD 2, 30 DAY(S), 50, REFILLS 0, NOTES: FILL ON 04/22/18 PROCEDURE CODES FA211 ESTABILISHED PATIENT [facility] CHARGE G8427 CURRENT MEDS W/DOSAGES DOCUMENTED G8730 PAIN ASSESS POS TOOL F/U PLAN DOC DISPOSITION & COMMUNICATION FOLLOW UP 2 MONTHS ELECTRONICALLY SIGNED BY DAGOBERTO AGUILAR MD, MD ON 07/12/2018 AT 03:35 PM EST DISCLAIMER : THIS IS A VISIT SUMMARY EXTRACTED FROM THE [employer] CHART. IT IS NOT A COPY OF THE [employer] PROGRESS NOTE. MTDD
== END ==
LOC: M PAIN 13:30
PROVIDERS: ATTEND Anesthesiology
DX: G89.29 Other chronic pain (principal); R07.1 Chest pain on breathing; M54.5 Low back pain; Z87.81 Personal history of (healed) traumatic fracture; E11.9 Type 2 diabetes mellitus without complications; E78.5 Hyperlipidemia, unspecified; I10 Essential (primary) hypertension; Z98.1 Arthrodesis status; Z94.0 Kidney transplant status; Z90.49 Acquired absence of other specified parts of digestive tract; Z79.4 Long term (current) use of insulin; Z79.899 Other long term (current) drug therapy

== ENCOUNTER → 2018-07-13 | Outpatient (CLI) | payer OTHER, MEDICAID ==
--- NOTE | 2018-07-26 23:45 | ECWPNPC ---
PATIENT NAME: JOANNE GARNER : 1955 GENDER: FEMALE VISIT DATE: 07/13/2018 DISCHARGE DATE: 07/13/181651 VISIT LOCKED DATE TIME: PHYSICIAN: DAGOBERTO AGUILAR MD RESOURCE: DAGOBERTO AGUILAR MD REASON FOR APPOINTMENT 1. MED [facility] HISTORY OF PRESENT ILLNESS HISTORY OF PRESENT ILLNESS: PAIN THE PATIENT DESCRIBES THE PAIN... 63 YEAR OLD FEMALE PATIENT WITH A HISTORY OF MULTIPLE BODY PAIN. THE PATIENT DESCRIBES THE PAIN SORE, SHOOTING, AND LASTING ALL DAY WITH A PAIN SCORE OF 8-10/10 OVER THE LEFT SIDE OF HER CHEST. THE PATIENT SAYS HER MAIN PAIN IS OVER HER LEFT SIDE DUE TO FRACTURED RIBS FROM A FALL. THE PATIENT IS CURRENTLY USING HYDROCODONE, LYRICA, AND LIDODERM PATCHES TO AID IN HER PAIN RELIEF. THE PATIENT IS USING 2 HYDROCODONE TABLETS, BUT SAYS THAT IT HAS NOT BEEN HELPING MUCH. PATIENT DENIES UNEXPLAINABLE WEIGHT LOSS, FEVER, CHILLS, NEW CHANGES ON HER URINARY OR BOWEL CONTROL. FALL RISK SCREENING: SCREENING :NO FALLS IN THE PAST YEAR CURRENT MEDICATIONS TAKING LYRICA 75 MG CAPSULE 1 CAPSULE ORALLY FOR PAIN THREE TIMES A DAY TAKING LIDODERM 5 % PATCH 3 PATCH TO SKIN REMOVE AFTER 12 HOURS EXTERNALLY FOR PAIN ONCE A DAY MDD3 TAKING HYDROCODONE-ACETAMINOPHEN 10-325 MG TABLET 1 TABLET NEEDED ORALLY FOR PAIN MDD 2, NOTES: FILL ON 04/22/18 TAKING TACROLIMUS 1 MG CAPSULE EXTENDED RELEASE 24 HOUR ORALLY BID TAKING NOVOLOG 100 UNIT/ML SOLUTION SUBCUTANEOUS TAKING NEVANAC 0.1 % SUSPENSION 1 DROP INTO AFFECTED EYE OPHTHALMIC THREE TIMES A DAY TAKING LANTUS 100 UNIT/ML SOLUTION SUBCUTANEOUS TAKING MYCOPHENOLATE MOFETIL 250 MG CAPSULE 3 CAPSULES ORALLY BID TAKING FUROSEMIDE 20 MG TABLET 1 TABLET ORALLY ONCE A DAY TAKING ATORVASTATIN CALCIUM 20 MG TABLET 1 TABLET ORALLY ONCE A DAY TAKING FLUOXETINE HCL 20 MG CAPSULE 1 CAPSULE ORALLY ONCE A DAY TAKING CARVEDILOL 12.5 MG TABLET ORALLY BID TAKING REGLAN 5 MG TABLET 1 TAB ORALLY BID TAKING VITAMIN D2 2000 UNIT TABLET 1 TABLET ORALLY ONCE A WEEK, NOTES: TAKES 47819 UNITS WEEKLY NOT-TAKING GABAPENTIN 100 MG CAPSULE 1 CAPSULE ORALLY THREE TIMES A DAY NOT-TAKING ERGOCAL 2500 UNIT CAPSULE 1 CAPSULE ORALLY ONCE A DAY NOT-TAKING PREDNISOLONE 5 MG TABLET 10 TABLET WITH FOOD OR MILK IN THE MORNING ORALLY ONCE A DAY NOT-TAKING PREDNISOLONE 5 MG TABLET 1 TABLET WITH FOOD OR MILK IN THE MORNING ORALLY ONCE A DAY MEDICATION LIST REVIEWED AND RECONCILED WITH THE PATIENT PAST MEDICAL HISTORY DIABETIC KIDNEY FAILURE HYPERLIPIDEMIA CHRONIC PAIN SYNDROME HTN ALLERGIES N.K.D.A. 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 EXERCISE: NOT WORKING, NO CONCENTRATED SWEETS., NO CONCENTRATED SWEETS.. MARITAL STATUS: NOT WORKING, NO CONCENTRATED SWEETS., NO CONCENTRATED SWEETS., NO REGULAR EXERCISE. OTHERS AT HOME: NOT WORKING, NO CONCENTRATED SWEETS., NO CONCENTRATED SWEETS., NO REGULAR EXERCISE, . IMMUNIZATION PROGRAM NOT WORKING, NO CONCENTRATED SWEETS., NO CONCENTRATED SWEETS., NO REGULAR EXERCISE, , SPOUSE, CHILDREN. PAIN CLINIC PFS, CLERGY, PUBLIC HEALTH REFERRALS PFS REFERRAL NEEDED?NO CLERGY REFERRAL NEEDED?NO PUBLIC HEALTH REFERRAL NEEDED?NO WAS THE PROVIDER NOTIFIED OF ANY PERTINENT INFO?NO HAS THE PATIENT BEEN EDUCATED REGARDING HIS/HER PLAN OF CARE?YES HAS THE PATIENT BEEN EDUCATED REGARDING PAIN, THE RISK FOR PAIN, THE IMPORTANCE OF EFFECTIVE PAIN MANAGEMENT, AND THE PAIN ASSESSMENT PROCESS?YES PLEASE DOCUMENT ANY ADDTIONAL DETAILS.PLEASE FREE TEXT IN THE NOTES SECTION. HOUSING: PFS REFERRAL NEEDED? NO, CLERGY REFERRAL NEEDED? NO, PUBLIC HEALTH REFERRAL NEEDED? NO, WAS THE PROVIDER NOTIFIED OF ANY PERTINENT INFO? NO, HAS THE PATIENT BEEN EDUCATED REGARDING HIS/HER PLAN OF CARE? YES, HAS THE PATIENT BEEN EDUCATED REGARDING PAIN, THE RISK FOR PAIN, THE IMPORTANCE OF EFFECTIVE PAIN MANAGEMENT, AND THE PAIN ASSESSMENT PROCESS? YES, PLEASE DOCUMENT ANY ADDTIONAL DETAILS. PLEASE FREE TEXT IN THE NOTES SECTION.. ADVANCE DIRECTIVE ADVANCE DIRECTIVE DISCUSSED WITH PATIENT:YES GAVE PT PRINTED INFO TO TAKE HOME PT HAS NO ADVANCED DIRECTIVES DECLINES ASSISTANCE WITH FILLING OUT FORM. 07/13/18 REVIEWED WITH PT 07/13/18 1522 BV. HOSPITALIZATION/MAJOR DIAGNOSTIC PROCEDURE EVERAL FOR KIDNEY FAILURE PRIOR TO TRANSPLANT REVIEW OF SYSTEMS REVIEWED BY: PROVIDER: DAGOBERTO AGUILAR MD . CONSTITUTIONAL: ANY CHANGE IN YOUR MEDICAL CONDITION? NO . CHILLS NO . FEVER NO . INFECTION: DO YOU HAVE NEW INFECTIONS? NO . DO YOU HAVE HISTORY OF MRSA? NO . MUSCULOSKELETAL: ANY NEW PATTERNS OF PAIN OR NUMBNESS? NO . GASTROENTEROLOGY: ANY NEW CHANGE IN BOWEL CONTROL? NO . GENITOURINARY: ANY NEW CHANGE IN BLADDER CONTROL? NO . IS THERE A CHANCE YOU COULD BE ? NO . HEMATOLOGY/LYMPH: DO YOU TAKE ANY BLOOD THINNERS? (FOR EXAMPLE- COUMADIN, PLAVIX, AGGRENOX, PLATEL, PRADAXA, OR XARELTO) NO . WHEN WAS YOUR LAST DOSE? DATE: TIME: . NEUROLOGY: HAVE YOU FALLEN IN THE PAST 6 MONTHS? YES, PT STATES SHE HAD A FALL IN EARLY June, WHICH SHE FRACTURED MULTIPLE RIBS. PT STATES THIS FALL WAS DOCUMENTED AT LAST VISIT TO US. PT DENIES ANY FALLS SINCE THEN. . ANY NEW EXTREMITY NUMBNESS OR WEAKNESS? NO . CARDIOLOGY: DO YOU HAVE A PACEMAKER OR DEFIBRILLATOR? NO . RESPIRATORY: HAVE YOU BEEN SICK IN THE PAST WEEK? NO . FEVER NO . FLU LIKE SYMPTOMS? NO . COUGH NO . INTEGUMENTARY: DO YOU HAVE ANY RASHES OR OPEN SORES? NO . ALLERGIC/IMMUNO: ARE YOU ALLERGIC TO SHELLFISH OR IV DYE? NO . ANY NEW ALLERGIES? NO . PSYCHIATRIC: DO YOU HAVE THOUGHTS OF HURTING YOURSELF OR SOMEONE ELSE? NO . ARE YOU ABUSED, NEGLECTED, OR IN AN UNSAFE ENVIRONMENT? NO . ENDOCRINOLOGY: ARE YOU DIABETIC? NO . OTHER: DO YOU NEED ANY PRESCRIPTIONS? NO . IF YES, PLEASE LIST: ____ . ANY NEW PROBLEMS WITH YOUR MEDICATIONS? NO . WHEN DID YOU LAST EAT? ____ . WHEN DID YOU LAST DRINK? ____ . WHAT DID YOU LAST DRINK? ____ . NAME OF PERSON DRIVING YOU HOME? ____ . DO YOU HAVE ANY OTHER QUESTIONS OR CONCERNS NO . VITAL SIGNS WT 166.6 LBS, HT 61 IN, BMI 31.48 INDEX, BP 148/58 MM HG, HR 79 /MIN, RR 16 /MIN, TEMP 98.0 F, OXYGEN SAT % 97%, NA INITIALS AW 1507, REVIEWED BY: BV. EXAMINATION GENERAL EXAMINATION: PATIENT IS ALERT O X 3 AND COOPERATIVE. SEVERE TENDERNESS OVER THE LEFT CHEST WALL. ASSESSMENTS COSTOCHONDRAL PAIN - R07.1 (PRIMARY) HISTORY OF RIB FRACTURE - Z87.81 HISTORY OF KIDNEY TRANSPLANT - Z94.0 TREATMENT COSTOCHONDRAL PAIN CLINICAL NOTES: WE DISCUSSED SEVERAL ISSUES WITH MRS. GARNER'S PAIN MANAGEMENT CASE. WE WILL NOT BE DOING THE INTERCOSTAL NERVE BLOCK AT THIS TIME TO GIVE THE PATIENT TIME TO HEAL AND SEE IF HER PAIN DECREASES IN A FEW WEEKS. I WILL INCREASE THE HYDROCODONE TO 3 TABLETS PER DAY. THE PATIENT BROUGHT HER MEDICATION WITH HER TO TODAY'S VISIT. URINE TOXICOLOGY DONE ON 06/26/2018 SHOWS OXYCODONE BECAUSE SHE WAS IN THE HOSPITAL A FEW WEEKS AGO, SO WE WILL REPEAT IT TODAY. I REMINDED THE PATIENT SHE CANNOT TAKE MORE MEDICATION THAN SHE IS PRESCRIBED. THE PATIENT WILL FOLLOW UP IN 3 WEEKS. INSTRUCTIONS WERE GIVEN, QUESTIONS WERE ANSWERED, PATIENT REPORTS UNDERSTANDING AND AGREES WITH THE PLAN. I, SHANIKA POTTER, DOCUMENTED THE ABOVE INFORMATION ACTING A SCRIBE FOR DR. AGUILAR. I HAVE REVIEWED THE ABOVE DOCUMENT, WRITTEN BY SHANIKA BUTCHER AND I VERIFY THAT IT IS ACCURATE. OTHERS REFILL LYRICA CAPSULE, 75 MG, 1 CAPSULE, ORALLY FOR PAIN, THREE TIMES A DAY, 30 DAY(S), 90 CAPSULE, REFILLS 0 REFILL LIDODERM PATCH, 5 %, 3 PATCH TO SKIN REMOVE AFTER 12 HOURS, EXTERNALLY FOR PAIN, ONCE A DAY MDD3, 30 DAYS, 90, REFILLS 1 REFILL HYDROCODONE-ACETAMINOPHEN TABLET, 10-325 MG, 1 TABLET NEEDED, ORALLY FOR PAIN, EVERY 8 HOURS NEEDED MDD3, 30 DAY(S), 90, REFILLS 0, NOTES: FILL ON 04/22/18 PROCEDURE CODES FA211 ESTABILISHED PATIENT [facility] CHARGE G8427 CURRENT MEDS W/DOSAGES DOCUMENTED G8730 PAIN ASSESS POS TOOL F/U PLAN DOC DISPOSITION & COMMUNICATION FOLLOW UP 3 WEEKS ELECTRONICALLY SIGNED BY DAGOBERTO AGUILAR MD, MD ON 07/26/2018 AT 11:17 AM EST DISCLAIMER : THIS IS A VISIT SUMMARY EXTRACTED FROM THE [employer] CHART. IT IS NOT A COPY OF THE [employer] PROGRESS NOTE. NEW
== END ==
LOC: M PAIN 15:15
PROVIDERS: ATTEND Anesthesiology
DX: R07.1 Chest pain on breathing (principal); Z87.81 Personal history of (healed) traumatic fracture; Z94.0 Kidney transplant status; E11.9 Type 2 diabetes mellitus without complications; E78.5 Hyperlipidemia, unspecified; I10 Essential (primary) hypertension; Z79.4 Long term (current) use of insulin; Z79.899 Other long term (current) drug therapy

== ENCOUNTER → 2018-08-07 | Outpatient (CLI) | payer OTHER, MEDICAID ==
--- NOTE | 2018-08-22 23:34 | ECWPNPC ---
PATIENT NAME: JOANNE GARNER : 1955 GENDER: FEMALE VISIT DATE: 08/07/2018 DISCHARGE DATE: 08/07/18 1137 VISIT LOCKED DATE TIME: PHYSICIAN: DAGOBERTO AGUILAR MD RESOURCE: DAGOBERTO AGUILAR MD REASON FOR APPOINTMENT 1. MULTIPLE BODY PARTS HISTORY OF PRESENT ILLNESS HISTORY OF PRESENT ILLNESS: PAIN THE PATIENT DESCRIBES THE PAIN... THE PATIENT DESCRIBES THE PAIN... 63 YEAR OLD FEMALE PATIENT WITH A HISTORY OF MULTIPLE BODY PAIN. THE PATIENT DESCRIBES THE PAIN BURNING, TENDER, SHARP, STABBING, SHOOTING, AND CONTINUOUS WITH A PAIN SCORE OF 7-8/10 DEPENDING ON PHYSICAL ACTIVITY. THE PATIENT STATES THAT HER WORST PAIN IS OVER THE LEFT SIDE OF HER CHEST AREA DUE TO A FALL THAT RESULTED IN FRACTURED RIBS. THE PATIENT IS CURRENTLY USING HYDROCODONE, LYRICA, AND LIDODERM PATCHES TO AID IN HER PAIN RELIEF. THE PATIENT HAS A HISTORY OF A KIDNEY TRANSPLANT. PATIENT DENIES UNEXPLAINABLE WEIGHT LOSS, FEVER, CHILLS, NEW CHANGES ON HER URINARY OR BOWEL CONTROL. FALL RISK SCREENING: SCREENING :NO FALLS IN THE PAST YEAR CURRENT MEDICATIONS TAKING LYRICA 75 MG CAPSULE 1 CAPSULE ORALLY FOR PAIN THREE TIMES A DAY TAKING LIDODERM 5 % PATCH 3 PATCH TO SKIN REMOVE AFTER 12 HOURS EXTERNALLY FOR PAIN ONCE A DAY MDD3 TAKING HYDROCODONE-ACETAMINOPHEN 10-325 MG TABLET 1 TABLET NEEDED ORALLY FOR PAIN EVERY 8 HOURS NEEDED MDD3 TAKING TACROLIMUS 1 MG CAPSULE EXTENDED RELEASE 24 HOUR ORALLY BID TAKING NOVOLOG 100 UNIT/ML SOLUTION SUBCUTANEOUS TAKING NEVANAC 0.1 % SUSPENSION 1 DROP INTO AFFECTED EYE OPHTHALMIC THREE TIMES A DAY TAKING LANTUS 100 UNIT/ML SOLUTION SUBCUTANEOUS TAKING MYCOPHENOLATE MOFETIL 250 MG CAPSULE 3 CAPSULES ORALLY BID TAKING FUROSEMIDE 20 MG TABLET 1 TABLET ORALLY ONCE A DAY TAKING ATORVASTATIN CALCIUM 20 MG TABLET 1 TABLET ORALLY ONCE A DAY TAKING FLUOXETINE HCL 20 MG CAPSULE 1 CAPSULE ORALLY ONCE A DAY TAKING CARVEDILOL 12.5 MG TABLET ORALLY BID TAKING REGLAN 5 MG TABLET 1 TAB ORALLY BID TAKING VITAMIN D2 2000 UNIT TABLET 1 TABLET ORALLY ONCE A WEEK, NOTES: TAKES 10864 UNITS WEEKLY NOT-TAKING GABAPENTIN 100 MG CAPSULE 1 CAPSULE ORALLY THREE TIMES A DAY NOT-TAKING ERGOCAL 2500 UNIT CAPSULE 1 CAPSULE ORALLY ONCE A DAY NOT-TAKING PREDNISOLONE 5 MG TABLET 10 TABLET WITH FOOD OR MILK IN THE MORNING ORALLY ONCE A DAY NOT-TAKING PREDNISOLONE 5 MG TABLET 1 TABLET WITH FOOD OR MILK IN THE MORNING ORALLY ONCE A DAY MEDICATION LIST REVIEWED AND RECONCILED WITH THE PATIENT PAST MEDICAL HISTORY DIABETIC KIDNEY FAILURE HYPERLIPIDEMIA CHRONIC PAIN SYNDROME HTN ALLERGIES N.K.D.A. 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 EXERCISE: NOT WORKING, NO CONCENTRATED SWEETS., NO CONCENTRATED SWEETS.. MARITAL STATUS: NOT WORKING, NO CONCENTRATED SWEETS., NO CONCENTRATED SWEETS., NO REGULAR EXERCISE. OTHERS AT HOME: NOT WORKING, NO CONCENTRATED SWEETS., NO CONCENTRATED SWEETS., NO REGULAR EXERCISE, . IMMUNIZATION PROGRAM NOT WORKING, NO CONCENTRATED SWEETS., NO CONCENTRATED SWEETS., NO REGULAR EXERCISE, , SPOUSE, CHILDREN. PAIN CLINIC PFS, CLERGY, PUBLIC HEALTH REFERRALS PFS REFERRAL NEEDED?NO CLERGY REFERRAL NEEDED?NO PUBLIC HEALTH REFERRAL NEEDED?NO WAS THE PROVIDER NOTIFIED OF ANY PERTINENT INFO?NO HAS THE PATIENT BEEN EDUCATED REGARDING HIS/HER PLAN OF CARE?YES HAS THE PATIENT BEEN EDUCATED REGARDING PAIN, THE RISK FOR PAIN, THE IMPORTANCE OF EFFECTIVE PAIN MANAGEMENT, AND THE PAIN ASSESSMENT PROCESS?YES PLEASE DOCUMENT ANY ADDTIONAL DETAILS.PLEASE FREE TEXT IN THE NOTES SECTION. HOUSING: PFS REFERRAL NEEDED? NO, CLERGY REFERRAL NEEDED? NO, PUBLIC HEALTH REFERRAL NEEDED? NO, WAS THE PROVIDER NOTIFIED OF ANY PERTINENT INFO? NO, HAS THE PATIENT BEEN EDUCATED REGARDING HIS/HER PLAN OF CARE? YES, HAS THE PATIENT BEEN EDUCATED REGARDING PAIN, THE RISK FOR PAIN, THE IMPORTANCE OF EFFECTIVE PAIN MANAGEMENT, AND THE PAIN ASSESSMENT PROCESS? YES, PLEASE DOCUMENT ANY ADDTIONAL DETAILS. PLEASE FREE TEXT IN THE NOTES SECTION.. ADVANCE DIRECTIVE ADVANCE DIRECTIVE DISCUSSED WITH PATIENT:YES DECLINES REVIEWED WITH PT 07/13/18 1522 BV. HOSPITALIZATION/MAJOR DIAGNOSTIC PROCEDURE EVERAL FOR KIDNEY FAILURE PRIOR TO TRANSPLANT REVIEW OF SYSTEMS REVIEWED BY: PROVIDER: DAGOBERTO AGUILAR MD . CONSTITUTIONAL: ANY CHANGE IN YOUR MEDICAL CONDITION? NO . CHILLS NO . FEVER NO . INFECTION: DO YOU HAVE NEW INFECTIONS? NO . DO YOU HAVE HISTORY OF MRSA? NO . MUSCULOSKELETAL: ANY NEW PATTERNS OF PAIN OR NUMBNESS? NO . GASTROENTEROLOGY: ANY NEW CHANGE IN BOWEL CONTROL? NO . GENITOURINARY: ANY NEW CHANGE IN BLADDER CONTROL? NO . IS THERE A CHANCE YOU COULD BE ? NO . HEMATOLOGY/LYMPH: DO YOU TAKE ANY BLOOD THINNERS? (FOR EXAMPLE- COUMADIN, PLAVIX, AGGRENOX, PLATEL, PRADAXA, OR XARELTO) NO . WHEN WAS YOUR LAST DOSE? DATE: TIME: . NEUROLOGY: HAVE YOU FALLEN IN THE PAST 12 MONTHS? YES, PRIOR TO LAST VISIT . ANY NEW EXTREMITY NUMBNESS OR WEAKNESS? NO . CARDIOLOGY: DO YOU HAVE A PACEMAKER OR DEFIBRILLATOR? NO . RESPIRATORY: HAVE YOU BEEN SICK IN THE PAST WEEK? NO . FEVER NO . FLU LIKE SYMPTOMS? NO . COUGH NO . INTEGUMENTARY: DO YOU HAVE ANY RASHES OR OPEN SORES? NO . ALLERGIC/IMMUNO: ARE YOU ALLERGIC TO IV DYE? NO . ANY NEW ALLERGIES? NO . PSYCHIATRIC: DO YOU HAVE THOUGHTS OF HURTING YOURSELF OR SOMEONE ELSE? NO . ARE YOU ABUSED, NEGLECTED, OR IN AN UNSAFE ENVIRONMENT? NO . ENDOCRINOLOGY: ARE YOU DIABETIC? YES . OTHER: DO YOU NEED ANY PRESCRIPTIONS? NO . IF YES, PLEASE LIST: ____ . ANY NEW PROBLEMS WITH YOUR MEDICATIONS? NO . WHEN DID YOU LAST EAT? ____ . WHEN DID YOU LAST DRINK? ____ . WHAT DID YOU LAST DRINK? ____ . NAME OF PERSON DRIVING YOU HOME? ____ . DO YOU HAVE ANY OTHER QUESTIONS OR CONCERNS NO . VITAL SIGNS WT 169 LBS, HT 61 IN, BMI 31.93 INDEX, BP 142/60 MM HG, HR 73 /MIN, RR 16 /MIN, TEMP 97.9 F, OXYGEN SAT % 98%, NA INITIALS AW 1023, REVIEWED BY: EM. EXAMINATION GENERAL EXAMINATION: PATIENT IS ALERT O X 3 AND COOPERATIVE. TENDERNESS OVER THE LEFT THORACIC AREA. ASSESSMENTS PAIN OF MULTIPLE SITES - R52 (PRIMARY) CHEST WALL PAIN - R07.89 STATUS POST KIDNEY TRANSPLANT - Z94.0 TREATMENT PAIN OF MULTIPLE SITES CLINICAL NOTES: WE DISCUSSED SEVERAL ISSUES WITH MRS. GARNER'S PAIN MANAGEMENT CASE. THE PATIENT WILL CONTINUE WITH THE SAME MEDICATION REGIMENT. ISTOP _[id number] WAS REVIEWED. THE PATIENT BROUGHT HER MEDICATIONS TO TODAY'S VISIT IN THEIR ORIGINAL BOTTLES. WE WILL PERFORM A PILL COUNTING TODAY. URINE TOXICOLOGY DONE ON 07/13/2018 SHOWS CONCURRENT RESULTS. I WILL REQUEST AN INTERFERENTIAL TENS UNIT FOR THE PATIENT. I WOULD ALSO LIKE TO DISCUSS THE CASE WITH THE PATIENT'S CRAP SHOOTER. INSTRUCTIONS WERE GIVEN, QUESTIONS WERE ANSWERED, PATIENT REPORTS UNDERSTANDING AND AGREES WITH THE PLAN. I, SHANIKA POTTER, DOCUMENTED THE ABOVE INFORMATION ACTING A SCRIBE FOR DR. AGUILAR. I HAVE REVIEWED THE ABOVE DOCUMENT, WRITTEN BY SHANIKA WILSONIBGarrett AND I VERIFY THAT IT IS ACCURATE. OTHERS REFILL LYRICA CAPSULE, 75 MG, 1 CAPSULE, ORALLY FOR PAIN, THREE TIMES A DAY, 30 DAY(S), 90 CAPSULE, REFILLS 0 REFILL LIDODERM PATCH, 5 %, 3 PATCH TO SKIN REMOVE AFTER 12 HOURS, EXTERNALLY FOR PAIN, ONCE A DAY MDD3, 30 DAYS, 90, REFILLS 1 REFILL HYDROCODONE-ACETAMINOPHEN TABLET, 10-325 MG, 1 TABLET NEEDED, ORALLY FOR PAIN, EVERY 8 HOURS NEEDED MDD3, 30 DAY(S), 90, REFILLS 0 PROCEDURE CODES FA211 ESTABILISHED PATIENT [facility] FACILITY CHARGE G8427 CURRENT MEDS W/DOSAGES DOCUMENTED G8730 PAIN ASSESS POS TOOL F/U PLAN DOC DISPOSITION & COMMUNICATION FOLLOW UP 2 MONTHS (REASON: MULTIPLE BODY PAIN) ELECTRONICALLY SIGNED BY DAGOBERTO AGUILAR MD, MD ON 08/22/2018 AT 05:13 PM EST DISCLAIMER : THIS IS A VISIT SUMMARY EXTRACTED FROM THE [employer] CHART. IT IS NOT A COPY OF THE [employer] PROGRESS NOTE. MTDD
== END ==
LOC: M PAIN 10:15
PROVIDERS: ATTEND Anesthesiology
DX: R07.89 Other chest pain (principal); E11.9 Type 2 diabetes mellitus without complications; E78.5 Hyperlipidemia, unspecified; I10 Essential (primary) hypertension; Z79.4 Long term (current) use of insulin; Z79.899 Other long term (current) drug therapy; Z94.0 Kidney transplant status

== ENCOUNTER → 2018-08-20 | Outpatient (CLI) | payer OTHER ==
--- NOTE | 2018-08-20 11:21 | REP ---
Chest two views HISTORY: Rib fractures Comparison: CT chest 06/02/2018 and chest x-ray 06/06/18 Pleural thickening or fluid is present in the left lateral hemithorax. The right lung is clear. present in the left lateral The heart is normal in size. The pulmonary vasculature is normal in appearance. There are fractures of the left 3rd through 8th ribs. The 5th through 7th rib fractures are new compared to the previous study. IMPRESSION: There are fractures of the left 3rd through 8th ribs. The fifth through seventh rib fractures are new compared to the previous study. Electronically Signed by Enoch Maciel MD 08/20/2018 11:12 A
== END ==
LOC: M SMT 10:13
PROVIDERS: ATTEND Thoracic Surgery (Cardiothoracic Vascular Surgery)
DX: S22.42XA Multiple fractures of ribs, left side, initial encounter for closed fracture (principal); X58.XXXA Exposure to other specified factors, initial encounter; Y92.9 Unspecified place or not applicable

== ENCOUNTER → 2018-09-28 | Outpatient (REF) | payer OTHER ==
[2018-09-28 15:29] LABS: CHOLESTEROL RISK RATIO 2.75 (<5)
== END ==
LOC: M LAB REF 12:57
PROVIDERS: ATTEND Internal Medicine Nephrology
DX: Z94.0 Kidney transplant status (principal); E11.22 Type 2 diabetes mellitus with diabetic chronic kidney disease; I15.0 Renovascular hypertension; E55.9 Vitamin D deficiency, unspecified

== ENCOUNTER → 2018-10-06 | Outpatient (CLI) | payer MEDICAID ==
[~2018-10-06] MED LIST changes: -NORC10TA21 PO; +NORC1TAB5 PO
--- NOTE | 2018-10-20 00:25 | ECWPNPC ---
PATIENT NAME: JOANNE GARNER : 1955 GENDER: FEMALE VISIT DATE: 10/06/2018 DISCHARGE DATE: 10/06/18 1430 VISIT LOCKED DATE TIME: PHYSICIAN: DAGOBERTO AGUILAR MD RESOURCE: DAGOBERTO AGUILAR MD REASON FOR APPOINTMENT 1. MULTIPLE BODY PAIN HISTORY OF PRESENT ILLNESS HISTORY OF PRESENT ILLNESS: PAIN THE PATIENT DESCRIBES THE PAIN... 63 YEAR OLD FEMALE PATIENT WITH A HISTORY OF CHRONIC MULTIPLE BODY PAIN. THE PATIENT DESCRIBES THE PAIN TENDER, SHARP, STABBING, SHOOTING, AND CONTINUOUS WITH A PAIN SCORE OF 6-9/10 DEPENDING ON PHYSICAL ACTIVITY. THE PATIENT SAYS THAT HER PAIN IS MAINLY LOCATED AT THE LEFT SIDE OF HER CHEST AND THORACIC AREAS DUE TO FRACTURED RIBS FROM A FALL SEVERAL MONTHS AGO. THE PATIENT REPORTS THAT SHE IS HEALING AND GETTING BETTER. THE PATIENT IS CURRENTLY USING HYDROCODONE, LYRICA, LIDODERM PATCHES TO AID IN PAIN RELIEF. PATIENT DENIES UNEXPLAINABLE WEIGHT LOSS, FEVER, CHILLS, NEW CHANGES ON HER URINARY OR BOWEL CONTROL. FALL RISK SCREENING: SCREENING :NO FALLS REPORTED IN THE LAST YEAR CURRENT MEDICATIONS TAKING LYRICA 75 MG CAPSULE 1 CAPSULE ORALLY FOR PAIN THREE TIMES A DAY TAKING LIDODERM 5 % PATCH 3 PATCH TO SKIN REMOVE AFTER 12 HOURS EXTERNALLY FOR PAIN ONCE A DAY MDD3 TAKING TACROLIMUS 1 MG CAPSULE EXTENDED RELEASE 24 HOUR ORALLY BID TAKING NOVOLOG 100 UNIT/ML SOLUTION SUBCUTANEOUS TAKING LANTUS 100 UNIT/ML SOLUTION SUBCUTANEOUS TAKING MYCOPHENOLATE MOFETIL 250 MG CAPSULE 3 CAPSULES ORALLY BID TAKING FUROSEMIDE 20 MG TABLET 1 TABLET ORALLY ONCE A DAY TAKING ATORVASTATIN CALCIUM 20 MG TABLET 1 TABLET ORALLY ONCE A DAY TAKING FLUOXETINE HCL 20 MG CAPSULE 1 CAPSULE ORALLY ONCE A DAY TAKING CARVEDILOL 12.5 MG TABLET ORALLY BID TAKING REGLAN 5 MG TABLET 1 TAB ORALLY BID TAKING VITAMIN D2 2000 UNIT TABLET 1 TABLET ORALLY ONCE A WEEK, NOTES: TAKES 93351 UNITS WEEKLY TAKING HYDROCODONE-ACETAMINOPHEN 10-325 MG TABLET 1 TABLET NEEDED ORALLY FOR PAIN EVERY 8 HOURS NEEDED MDD3 NOT-TAKING NEVANAC 0.1 % SUSPENSION 1 DROP INTO AFFECTED EYE OPHTHALMIC THREE TIMES A DAY NOT-TAKING GABAPENTIN 100 MG CAPSULE 1 CAPSULE ORALLY THREE TIMES A DAY NOT-TAKING ERGOCAL 2500 UNIT CAPSULE 1 CAPSULE ORALLY ONCE A DAY NOT-TAKING PREDNISOLONE 5 MG TABLET 10 TABLET WITH FOOD OR MILK IN THE MORNING ORALLY ONCE A DAY NOT-TAKING PREDNISOLONE 5 MG TABLET 1 TABLET WITH FOOD OR MILK IN THE MORNING ORALLY ONCE A DAY MEDICATION LIST REVIEWED AND RECONCILED WITH THE PATIENT PAST MEDICAL HISTORY DIABETIC KIDNEY FAILURE HYPERLIPIDEMIA CHRONIC PAIN SYNDROME HTN ALLERGIES N.K.D.A. SURGICAL HISTORY KIDNEY TRANSPLANT RIGHT C3-4 FUSION 2017 [place] 1980 RIGHT ROTATOR CUFF 2000 C [place] 1980 RIGHT CARPEL TUNNAL FAMILY HISTORY FATHER: , DIAGNOSED WITH HEART DISEASE MOTHER: ALIVE, DIABETES SIBLINGS: ALIVE DAUGHTER(S): ALIVE SOCIAL HISTORY GENERAL: TOBACCO USE ARE YOU A:NONSMOKER LATEX QUESTIONNAIRE LATEX ALLERGY : HAVE YOU EVER DEVELOPED ANY TYPE OF REACTION AFTER HANDLING LATEX PRODUCTS SUCH RUBBER GLOVES, CONDOMS, DIAPHRAGMS, BALLOONS, SOCKS, OR UNDERWEAR?NO LATEX ALLERGY : HAVE YOU EVER DEVELOPED ANY TYPE OF REACTION DURING OR AFTER DENTAL APPOINTMENT, VAGINAL/RECTAL EXAMINATION, SURGICAL PROCEDURE, OR ANY OTHER EXPOSURE?NO LATEX RISK : HAVE YOU EVER HAD ANY DIFFICULTY BREATHING OR HIVES AFTER EATING OR HANDLING ANY FRUITS, OR VEGETABLES; SUCH KIWI, BANANAS, STONE FRUITS, OR CHESTNUTSNO LATEX RISK : DO YOU HAVE A PREVIOUS PERSONAL HISTORY OF MORE THAN NINE SURGERIES, SPINA BIFIDA, OR REPEATED CATHERTIZATIONS? 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 EXERCISE: NOT WORKING, NO CONCENTRATED SWEETS., NO CONCENTRATED SWEETS.. MARITAL STATUS: NOT WORKING, NO CONCENTRATED SWEETS., NO CONCENTRATED SWEETS., NO REGULAR EXERCISE. OTHERS AT HOME: NOT WORKING, NO CONCENTRATED SWEETS., NO CONCENTRATED SWEETS., NO REGULAR EXERCISE, . IMMUNIZATION PROGRAM NOT WORKING, NO CONCENTRATED SWEETS., NO CONCENTRATED SWEETS., NO REGULAR EXERCISE, , SPOUSE, CHILDREN. PAIN CLINIC PFS, CLERGY, PUBLIC HEALTH REFERRALS PFS REFERRAL NEEDED?NO CLERGY REFERRAL NEEDED?NO PUBLIC HEALTH REFERRAL NEEDED?NO WAS THE PROVIDER NOTIFIED OF ANY PERTINENT INFO?NO HAS THE PATIENT BEEN EDUCATED REGARDING HIS/HER PLAN OF CARE?YES HAS THE PATIENT BEEN EDUCATED REGARDING PAIN, THE RISK FOR PAIN, THE IMPORTANCE OF EFFECTIVE PAIN MANAGEMENT, AND THE PAIN ASSESSMENT PROCESS?YES PLEASE DOCUMENT ANY ADDTIONAL DETAILS.PLEASE FREE TEXT IN THE NOTES SECTION. HOUSING: PFS REFERRAL NEEDED? NO, CLERGY REFERRAL NEEDED? NO, PUBLIC HEALTH REFERRAL NEEDED? NO, WAS THE PROVIDER NOTIFIED OF ANY PERTINENT INFO? NO, HAS THE PATIENT BEEN EDUCATED REGARDING HIS/HER PLAN OF CARE? YES, HAS THE PATIENT BEEN EDUCATED REGARDING PAIN, THE RISK FOR PAIN, THE IMPORTANCE OF EFFECTIVE PAIN MANAGEMENT, AND THE PAIN ASSESSMENT PROCESS? YES, PLEASE DOCUMENT ANY ADDTIONAL DETAILS. PLEASE FREE TEXT IN THE NOTES SECTION.. ADVANCE DIRECTIVE ADVANCE DIRECTIVE DISCUSSED WITH PATIENT:YES DECLINES INFO AND ASSISTANCE OF HCP FORM AT THIS TIME 10/06/18 REVIEWED WITH PT 07/13/18 1522 BVREVIEWED WITH PT 10/06/18 1320 BV. HOSPITALIZATION/MAJOR DIAGNOSTIC PROCEDURE EVERAL FOR KIDNEY FAILURE PRIOR TO TRANSPLANT REVIEW OF SYSTEMS REVIEWED BY: PROVIDER: DAGOBERTO AGUILAR MD . CONSTITUTIONAL: ANY CHANGE IN YOUR MEDICAL CONDITION? NO . CHILLS NO . FEVER NO . INFECTION: DO YOU HAVE NEW INFECTIONS? NO . DO YOU HAVE HISTORY OF MRSA? NO . MUSCULOSKELETAL: ANY NEW PATTERNS OF PAIN OR NUMBNESS? YES, PT HAD HAD INCREASED PAIN IN ALL 4 EXTREMITIES OVER THE PAST 3-4 MONTHS. STATES LEFT SIDE IS WORSE THAN THE RIGHT. . GASTROENTEROLOGY: ANY NEW CHANGE IN BOWEL CONTROL? NO . GENITOURINARY: ANY NEW CHANGE IN BLADDER CONTROL? NO . IS THERE A CHANCE YOU COULD BE ? NO . HEMATOLOGY/LYMPH: DO YOU TAKE ANY BLOOD THINNERS? (FOR EXAMPLE- COUMADIN, PLAVIX, AGGRENOX, PLATEL, PRADAXA, OR XARELTO) NO . WHEN WAS YOUR LAST DOSE? DATE: TIME: . NEUROLOGY: HAVE YOU FALLEN IN THE PAST 12 MONTHS? NO . ANY NEW EXTREMITY NUMBNESS OR WEAKNESS? YES, INCREASED PAIN AND WEAKNESS IN ALL 4 EXTREMITIES OVER THE PAST 3-4 MONTHS. LEFT>RIGHT . CARDIOLOGY: DO YOU HAVE A PACEMAKER OR DEFIBRILLATOR? NO . RESPIRATORY: HAVE YOU BEEN SICK IN THE PAST WEEK? NO . FEVER NO . FLU LIKE SYMPTOMS? NO . COUGH YES, INTERMITTENT DRY COUGH FOR THE PAST 1-2 WEEKS. DENIES ANY FEVER OR OTHER SYMPTOMS. . INTEGUMENTARY: DO YOU HAVE ANY RASHES OR OPEN SORES? NO . ALLERGIC/IMMUNO: ARE YOU ALLERGIC TO IV DYE? NO . ANY NEW ALLERGIES? NO . PSYCHIATRIC: DO YOU HAVE THOUGHTS OF HURTING YOURSELF OR SOMEONE ELSE? NO . ARE YOU ABUSED, NEGLECTED, OR IN AN UNSAFE ENVIRONMENT? NO . ENDOCRINOLOGY: ARE YOU DIABETIC? YES, ON MEDICATION . OTHER: DO YOU NEED ANY PRESCRIPTIONS? YES, LYRICA, LIDOCAINE PATCH, HYDROCODONE-ACETAMINOPHEN . IF YES, PLEASE LIST: ____ . ANY NEW PROBLEMS WITH YOUR MEDICATIONS? NO . WHEN DID YOU LAST EAT? ____ . WHEN DID YOU LAST DRINK? ____ . WHAT DID YOU LAST DRINK? ____ . NAME OF PERSON DRIVING YOU HOME? ____ . DO YOU HAVE ANY OTHER QUESTIONS OR CONCERNS NO . VITAL SIGNS WT 164.0 LBS, HT 61 IN, BMI 30.98 INDEX, BP 153/72 MM HG, HR 82 /MIN, RR 16 /MIN, TEMP 98.0 F, OXYGEN SAT % 97%, NA INITIALS AW 1306, REVIEWED BY: BV. EXAMINATION GENERAL EXAMINATION: PATIENT IS ALERT O X 3 AND COOPERATIVE. 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 GARNER'S PAIN MANAGEMENT CASE. THE PATIENT WILL CONTINUE WITH THE SAME MEDICATION REGIMENT. ISTOP _#[id number] WAS REVIEWED. THE PATIENT BROUGHT HER MEDICATIONS WITH HER TO TODAY'S VISIT. URINE TOXICOLOGY DONE ON 07/13/2018 SHOWS CONCURRENT RESULTS. THE PATIENT WILL FOLLOW UP IN 2 MONTHS. INSTRUCTIONS WERE GIVEN, QUESTIONS WERE ANSWERED, PATIENT REPORTS UNDERSTANDING AND AGREES WITH THE PLAN. I, SHNAIKA POTTER, DOCUMENTED THE ABOVE INFORMATION ACTING A SCRIBE FOR DR. AGUILAR. I HAVE REVIEWED THE ABOVE DOCUMENT, WRITTEN BY SHANIKA BUTCHER AND I VERIFY THAT IT IS ACCURATE. . OTHERS REFILL LYRICA CAPSULE, 75 MG, 1 CAPSULE, ORALLY FOR PAIN, THREE TIMES A DAY, 30 DAY(S), 90 CAPSULE, REFILLS 0 REFILL LIDODERM PATCH, 5 %, 3 PATCH TO SKIN REMOVE AFTER 12 HOURS, EXTERNALLY FOR PAIN, ONCE A DAY MDD3, 30 DAYS, 90, REFILLS 1 REFILL HYDROCODONE-ACETAMINOPHEN TABLET, 10-325 MG, 1 TABLET NEEDED, ORALLY FOR PAIN, EVERY 8 HOURS NEEDED MDD3, 30 DAY(S), 90, REFILLS 0 PROCEDURE CODES FA211 ESTABILISHED PATIENT [facility] FACILITY CHARGE G8427 CURRENT MEDS W/DOSAGES DOCUMENTED G8730 PAIN ASSESS POS TOOL F/U PLAN DOC DISPOSITION & COMMUNICATION FOLLOW UP 2 MONTHS (REASON: MULTIPLE BODY PAIN) ELECTRONICALLY SIGNED BY DAGOBERTO AGUILAR MD, MD ON 10/19/2018 AT 05:28 PM EDT DISCLAIMER : THIS IS A VISIT SUMMARY EXTRACTED FROM THE [employer] CHART. IT IS NOT A COPY OF THE [employer] PROGRESS NOTE. MTDD
== END ==
LOC: M PAIN 12:00
PROVIDERS: ATTEND Anesthesiology
DX: M54.6 Pain in thoracic spine (principal); M54.14 Radiculopathy, thoracic region; G89.29 Other chronic pain; E11.9 Type 2 diabetes mellitus without complications; E78.5 Hyperlipidemia, unspecified; I10 Essential (primary) hypertension; Z79.4 Long term (current) use of insulin; Z79.899 Other long term (current) drug therapy; Z94.0 Kidney transplant status